=== PATIENT | male | born 1970 | race American Indian/Alaskan Native ===

== ENCOUNTER 2016-10-10 15:23 | Inpatient (IN) | payer OTHER ==
[2016-10-10] MEDS ORDERED: HALDOL IM ONE (16:17)
[2016-10-10] MEDS ORDERED: ATIVAN IM ONE (16:18)
--- NOTE | 2016-10-10 16:26 | Emergency Department Report ---
ED Chest Pain HPI - General Chief Complaint: Chest Pain Stated Complaint: CHEST PAIN Time Seen by Provider: 10/10/16 15:53 Source: EMS Mode of arrival: Stretcher Limitations: Altered Mental Status - History of Present Illness Initial Comments: This is a 46-year-old Afro-Cypriot male who presents to the emergency department via PD with complaint of chest pain that started at the patient was going to intake at [facility]. Since that time the patient has been holding his chest and has been uncooperative. The patient appears to understand was being said to him but he refuses to answer questions and refuses any type of blood draw or IV insertion. Because of the patient's uncooperative nature, he is a poor historian about any past medical history or his history of present events. - Related Data Allergies Allergy/AdvReac Type Severity Reaction Status Date / Time No Known Allergies Allergy Unverified 10/10/16 15:44 Heart Score - HEART Score History: Moderately suspicious EKG: Non-specific Age: 45-65 Risk factors: 1-2 risk factors Troponin: < normal limit HEART Score: 4 - Critical Actions Critical Actions: 4-6 pts:12-16.6% risk of adverse cardiac event. Should be admitted ED Review of Systems ROS: Stated complaint: CHEST PAIN Other details as noted in HPI Comment: Unobtainable due to pts medical conditions ED Past Medical Hx - Past Medical History Additional medical history: DOLORES - Surgical History Additional Surgical History: DOLORES - Social History Smoking Status: Unknown if ever smoked ED Physical Exam - General Limitations: Altered Mental Status - Other Other exam information: GENERAL: The patient is well-developed well-nourished. HEENT: Normocephalic. Atraumatic. Extraocular motions are intact. Patient has moist mucous membranes. Pupils equal reactive to light bilaterally. The patient is doing some abnormal movement of the tongue within his mouth going to different sides of the mouth and then sticking outside of his mouth and different repetitions. However he is also seen resting quietly with his tongue at rest as well. NECK: Supple. Trachea is midline. CHEST/LUNGS: Clear to auscultation. There is no respiratory distress noted. HEART/CARDIOVASCULAR: Regular. There is no tachycardia. There is no gallop rub or murmur. ABDOMEN: Abdomen is soft, nontender. Patient has normal bowel sounds. There is no abdominal distention. SKIN: Skin is warm and the patient is slightly diaphoretic. NEURO: Patient is awake and alert. The patient was heard talking but is not forthcoming. Withdraws from painful stimuli. MUSCULOSKELETAL: There is no tenderness or deformity. There is no limitation range of motion. There is no evidence of acute injury. ED Course Vital Signs 10/10/16 10/10/16 15:41 17:21 Temperature 98.5 F Pulse Rate 74 Respiratory 16 Rate Blood Pressure 155/83 O2 Sat by Pulse 94 Oximetry MUKESH score - Mukesh Score Age > 65: (0) No Aspirin use within the Past 7 Days: (0) No 3 or more CAD Risk Factors: (0) No 2 or more Angina events in past 24 hrs: (1) Yes Known CAD with more than 50% Stenosis: (0) No Elevated Cardiac Markers: (0) No ST Deviation Greater than 0.5mm: (1) Yes MUKESH Score: 2 ED Medical Decision Making - Lab Data Result diagrams: 10/10/16 16:57 10/10/16 16:57 - EKG Data -: EKG Interpreted by Me EKG shows normal: sinus rhythm, axis (left axis deviation), intervals, QRS complexes (Q waves to the septal leads), ST-T waves (nonspecific ST changes, T- wave inversions to the anterior and lateral leads) Rate: normal - EKG Data When compared to previous EKG there are: previous EKG unavailable Interpretation: other (sinus rhythm, left axis deviation, nonspecific CT changes , T-wave inversions in lateral leads, Q waves in the septal leads) - Radiology Data Radiology results: report reviewed, image reviewed interpreted by me: Chest x-ray did not show any acute process. Heart is normal shape and size. No effusions. No pneumothorax. No signs of pneumonia seen. CT of the head does not show any acute bleed, shift, mass or any acute process. 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 - Medical Decision Making 46-year-old male presents to the emergency Department via PD from [facility] intake with complaint of acute chest pain. While the police are at the hospital, the patient is rolling around clutching his chest. Once the police left, the patient was seen much more calm and resting more comfortably. However the patient does appear slightly diaphoretic and when approached for examination he continues to show signs of complaints of chest pain. The patient allowed us to do a EKG which appeared slightly abnormal with some T-wave inversions and nonspecific ST-T changes throughout the anterior and lateral leads. He also allowed us to do a chest x-ray which did not show any acute process. However the patient would not allow IV access by EMS, a blood draw in the emergency department. I spent time sitting down with the patient trying to reason with him that he appears diaphoretic with chest discomfort and a abnormal EKG and needs lab work to try and diagnose his issue and most likely IV access for any further treatment. The patient is refusing this and has become combative. I gave the patient a chance to prove to me that he is awake, alert and oriented and if he was able to do so that he would be allowed to refuse labs and/or treatment and we could discuss AMA disposition. However the patient either was unable to verbalize this to me or refused to do so. It is difficult to assess as the patient appears to answer some questions if it does not involve needles or blood draw but becomes completely nonverbal and combative when we are trying to get lab tests. Since the patient was unable to display that he was awake, alert, cognizant and appropriate, and since the patient became combative when we attempted to diagnose and/or treat him, the patient received some Haldol and Ativan for sedation. While the patient has been resting comfortably, we were able to do a blood draw, get a CT of the head without contrast. So far the blood work does not show any etiology of the patient's discomfort and the first troponin has been negative. There is no signs of significant leukocytosis. No left to light abnormalities, renal insufficiency or glucose abnormalities. Chest x-ray did not show any acute process. CT of the head shows possible previous left frontal lobe infarct but no acute bleed, shift, mass, ischemia. Patient has been made a 1013 secondary to his uncooperative and combative nature but will be made a medical admission. He has been accepted for admission by the hospitalist, Dr Patton. - Differential Diagnosis TN, CHF, CVA, Psychosis, Malingering Critical Care Time: No Critical care attestation.: If time is entered above; I have spent that time in minutes in the direct care of this critically ill patient, excluding procedure time. ED Disposition Clinical Impression: Combative behavior Chest pain Qualifiers: Chest pain type: unspecified Qualified Code(s): R07.9 - Chest pain, unspecified Hypertension Qualifiers: Hypertension type: essential hypertension Qualified Code(s): I10 - Essential ( primary) hypertension Disposition: 09 OP ADMIT IP TO THIS HOSP Is pt being admited?: Yes Condition: Stable Instructions: Chest Pain (ED), Hypertension (ED) Time of Disposition: 19:35
--- NOTE | 2016-10-10 17:12 | XRay Report ---
FINAL REPORT PROCEDURE: Chest. TECHNIQUE: Portable AP view. HISTORY: Chest pain. COMPARISON: No prior studies are available for comparison. FINDINGS: The radiograph is slightly underpenetrated. The heart size is borderline. There is mild tortuosity of the thoracic aorta. The lungs are grossly clear. There are no pleural effusions. The soft tissues and regional skeleton are unremarkable. IMPRESSION: No evidence of acute disease.
[2016-10-10 17:32] LABS: Basophils % (Auto) 0.7 % (0.0-1.8); Eosinophils % (Auto) 1.7 % (0.0-4.3); Hematocrit 43.8 % (35.5-45.6); Hemoglobin 14.8 gm/dl (11.8-15.2); Mean Corpuscular HGB Conc 34 % (32-34); Mean Corpuscular Hemoglobin 32 pg (28-32); Mean Corpuscular Volume 94 fl (84-94); Platelet Count 154 K/mm3 (140-440); Red Blood Count 4.66 M/mm3 (3.65-5.03); White Blood Count 7.2 K/mm3 (4.5-11.0)
[2016-10-10 17:33] LABS: Alanine Aminotransferase 28 units/L (7-56); Albumin 3.9 g/dL (3.9-5); Albumin/Globulin Ratio 1.1 %; Alkaline Phosphatase 65 units/L (35-129); Anion Gap 19 mmol/L; Blood Urea Nitrogen 14 mg/dL (9-20); Calcium 8.9 mg/dL (8.4-10.2); Carbon Dioxide 25 mmol/L (22-30); Chloride 103.6 mmol/L (98-107); Glucose 92 mg/dL (75-100); Potassium 4.1 mmol/L (3.6-5.0); Sodium 143 mmol/L (137-145); Total Protein 7.6 g/dL (6.3-8.2)
--- NOTE | 2016-10-10 18:50 | Cat Scan Report ---
FINAL REPORT PROCEDURE: CT head without contrast. TECHNIQUE: Computerized tomography of the head was performed without contrast material. HISTORY: Altered mental status. COMPARISON: No prior studies are available for comparison. FINDINGS: The ventricles are normal in size. There is a small focal area of decreased attenuation within the deep white matter of the left frontal lobe. This shows no mass-effect. It likely represents an old white matter infarct. There are no mass lesions. There is no intracranial hemorrhage. There are no definite signs of acute infarction. The calvarium appears intact. The mastoid air cells and paranasal sinuses are clear. IMPRESSION: Probable old white matter infarct in the left frontal lobe. No definite signs of acute disease.
[2016-10-10] MEDS ORDERED: ZOFRAN IV PRN (19:31)
[2016-10-10] MEDS ORDERED: TYLENOL PO PRN (19:31)
[2016-10-10] MEDS ORDERED: NITROSTAT SL PRN (19:31)
[2016-10-10] MEDS ORDERED: DULCOLAX PR PRN (19:31)
[2016-10-10] MEDS ORDERED: MILK OF MAGNESIA PO PRN (19:31)
[2016-10-10] MEDS ORDERED: ASPIRIN PR ONE (19:35)
--- NOTE | 2016-10-10 19:44 | History and Physical Report ---
History of Present Illness Date of examination: 10/10/16 Chief complaint: Chest pain History of present illness: 46-year-old man whose history is unobtainable. Therefore history was taken from the chart and from the ER physician and ER staff. Apparently this man was just arrested and he was at the police station at intake when he suddenly started clutching his chest complaining of chest pain. Upon arriving to the ER he actually became quite agitated confused and combative and therefore he was given Haldol and Ativan after which he's been sedated. no further history could be taken Past History Past Medical History: other (unknown) Past Surgical History: Other (unknown) Social history: other (unknown) Family history: other (unknown) Medications and Allergies Allergies Allergy/AdvReac Type Severity Reaction Status Date / Time No Known Allergies Allergy Unverified 10/10/16 15:44 Active Meds: Active Medications Acetaminophen (Tylenol) 650 mg PO Q4H PRN PRN Reason: Pain MILD(1-3)/Fever >100.5/ORDOÑEZ Aspirin (Ecotrin) 325 mg PO QDAY INOCENCIO Bisacodyl (Dulcolax) 10 mg IN QDAY PRN PRN Reason: Constipation unrelieved by MOM Enoxaparin Sodium (Lovenox) 40 mg SUB-Q QDAY INOCENCIO Sodium Chloride (Nacl 0.9% 1000 Ml) 1,000 mls @ 42 mls/hr IV DIRECT INOCENCIO Magnesium Hydroxide (Milk Of Magnesia) 30 ml PO Q4H PRN PRN Reason: Constipation Nitroglycerin (Nitrostat) 0.4 mg SL Q5M PRN PRN Reason: Chest Pain Ondansetron HCl (Zofran) 4 mg IV Q8H PRN PRN Reason: N/V unrelieved by Reglan Review of Systems ROS unobtainable: due to mental status Exam - Constitutional Vitals: Temp Pulse Resp BP Pulse Ox 98.5 F 74 16 155/83 94 10/10/16 15:41 10/10/16 15:41 10/10/16 17:21 10/10/16 15:41 10/10/16 15:41 General appearance: Present: no acute distress, well-nourished - EENT Eyes: Present: PERRL ENT: hearing intact, clear oral mucosa - Neck Neck: Present: supple, normal ROM - Respiratory Respiratory effort: normal Respiratory: bilateral: CTA - Cardiovascular Heart Sounds: Present: S1 & S2. Absent: rub, click - Extremities Extremities: pulses symmetrical, No edema Peripheral Pulses: within normal limits - Abdominal General gastrointestinal: Present: soft, non-tender, non-distended, normal bowel sounds Male genitourinary: Present: deferred - Integumentary Integumentary: Present: clear, warm, dry - Neurologic Neurologic: other (sedated, unable to perform neuro exam) Results - Labs CBC & Chem 7: 10/10/16 16:57 10/10/16 16:57 Labs: Laboratory Last Values WBC 7.2 K/mm3 (4.5-11.0) 10/10/16 16:57 RBC 4.66 M/mm3 (3.65-5.03) 10/10/16 16:57 Hgb 14.8 gm/dl (11.8-15.2) 10/10/16 16:57 Hct 43.8 % (35.5-45.6) 10/10/16 16:57 MCV 94 fl (84-94) 10/10/16 16:57 MCH 32 pg (28-32) 10/10/16 16:57 MCHC 34 % (32-34) 10/10/16 16:57 RDW 15.0 % (13.2-15.2) 10/10/16 16:57 Plt Count 154 K/mm3 (140-440) 10/10/16 16:57 Lymph % (Auto) 23.5 % (13.4-35.0) 10/10/16 16:57 [place] % (Auto) 11.9 % (0.0-7.3) H 10/10/16 16:57 Eos % (Auto) 1.7 % (0.0-4.3) 10/10/16 16:57 Baso % (Auto) 0.7 % (0.0-1.8) 10/10/16 16:57 Lymph # 1.7 K/mm3 (1.2-5.4) 10/10/16 16:57 [place] # 0.9 K/mm3 (0.0-0.8) H 10/10/16 16:57 Eos # 0.1 K/mm3 (0.0-0.4) 10/10/16 16:57 Baso # 0.1 K/mm3 (0.0-0.1) 10/10/16 16:57 Seg Neutrophils % 62.2 % (40.0-70.0) 10/10/16 16:57 Seg Neutrophils # 4.5 K/mm3 (1.8-7.7) 10/10/16 16:57 Sodium 143 mmol/L (137-145) 10/10/16 16:57 Potassium 4.1 mmol/L (3.6-5.0) 10/10/16 16:57 Chloride 103.6 mmol/L (98-107) 10/10/16 16:57 Carbon Dioxide 25 mmol/L (22-30) 10/10/16 16:57 Anion Gap 19 mmol/L 10/10/16 16:57 BUN 14 mg/dL (9-20) 10/10/16 16:57 Creatinine 1.4 mg/dL (0.8-1.5) 10/10/16 16:57 Estimated GFR > 60 ml/min 10/10/16 16:57 BUN/Creatinine Ratio 10.00 % 10/10/16 16:57 Glucose 92 mg/dL (75-100) 10/10/16 16:57 Calcium 8.9 mg/dL (8.4-10.2) 10/10/16 16:57 Total Bilirubin 0.40 mg/dL (0.1-1.2) 10/10/16 16:57 AST 31 units/L (5-40) 10/10/16 16:57 ALT 28 units/L (7-56) 10/10/16 16:57 Alkaline Phosphatase 65 units/L (35-129) 10/10/16 16:57 Troponin T < 0.010 ng/mL (0.00-0.029) 10/10/16 18:14 Total Protein 7.6 g/dL (6.3-8.2) 10/10/16 16:57 Albumin 3.9 g/dL (3.9-5) 10/10/16 16:57 Albumin/Globulin Ratio 1.1 % 10/10/16 16:57 Plasma/Serum Alcohol < 0.01 gm% (0-0.07) 10/10/16 18:14 - Imaging and Cardiology EKG: image reviewed (no acute ST changes) Chest x-ray: image reviewed (no acute path) Assessment and Plan Assessment and plan: 46-year-old man with unknown past medical history who was brought in after he complained of chest pain, he had just been arrested and I was at intake [facility] the [facility] when he clutched his chest complaining of chest pain. Unfortunately patient became altered and combative in the ER and had to be sedated. Chest pain First set of troponins negative EKG and chest x-ray are unremarkable, will follow serial troponins, obtain stress test in the morning he received aspirin in the ER, will continue it Encephalopathy, toxic versus metabolic Obtain UDS, continue 1013 It is possible that he may be malingering, we'll reassess his neurological status frequently DVT prophylaxis Lovenox VTE prophylaxis?: Chemical
[2016-10-10] MEDS ORDERED: NACL 0.9% 1000 ML 1,000 ML IV SCH (20:00)
[2016-10-10] MEDS ORDERED: APRESOLINE IV PRN (21:08)
[2016-10-10] MEDS ORDERED: APRESOLINE IV ONE (21:08)
[2016-10-10 22:47] LABS: Urine Drugs of Abuse Note Disclamer
[2016-10-10 23:15] LABS: Bilirubin,Urine NEG (Negative); Blood,Urine NEG (Negative); Ketones,Urine NEG (Negative); Leukocyte Esterase,Urine NEG (Negative); Nitrite,Urine NEG (Negative)
[2016-10-11] MEDS ORDERED: LEXISCAN IV ONE ×2 (08:38→08:44)
--- NOTE | 2016-10-11 10:39 | Progress Note ---
Assessment and Plan Assessment and plan: Chest pain Thus far roponins negative, EKG and chest x-ray are unremarkable. Obtain stress test this morning. Encephalopathy, toxic versus metabolic UDS positive for cocaine, continue 1013 for now. Await psychiatric evaluation after medically clear with chest pain. It is possible that he may be malingering, we'll reassess his neurological status frequently DVT prophylaxis Lovenox History Interval history: No new issues overnight. Patient seen in stress lab Hospitalist Physical - Constitutional Vitals: Temp Pulse Resp BP Pulse Ox 98.3 F 56 L 18 161/92 99 10/11/16 07:50 10/11/16 07:50 10/11/16 07:50 10/11/16 07:50 10/11/16 04:20 General appearance: Present: no acute distress, well-nourished - EENT Eyes: Present: PERRL, EOM intact ENT: hearing intact, clear oral mucosa, dentition normal - Neck Neck: Present: supple, normal ROM - Respiratory Respiratory effort: normal Respiratory: bilateral: CTA - Cardiovascular Rhythm: regular Heart Sounds: Present: S1 & S2. Absent: gallop, rub - Extremities Extremities: no ischemia, No edema, Full ROM - Abdominal General gastrointestinal: soft, non-tender, non-distended, normal bowel sounds - Integumentary Integumentary: Present: clear, warm, dry - Neurologic Neurologic: CNII-XII intact, moves all extremities Results - Labs CBC & Chem 7: 10/10/16 16:57 10/10/16 16:57 Labs: Laboratory Last Values WBC 7.2 K/mm3 (4.5-11.0) 10/10/16 16:57 RBC 4.66 M/mm3 (3.65-5.03) 10/10/16 16:57 Hgb 14.8 gm/dl (11.8-15.2) 10/10/16 16:57 Hct 43.8 % (35.5-45.6) 10/10/16 16:57 MCV 94 fl (84-94) 10/10/16 16:57 MCH 32 pg (28-32) 10/10/16 16:57 MCHC 34 % (32-34) 10/10/16 16:57 RDW 15.0 % (13.2-15.2) 10/10/16 16:57 Plt Count 154 K/mm3 (140-440) 10/10/16 16:57 Lymph % (Auto) 23.5 % (13.4-35.0) 10/10/16 16:57 [place] % (Auto) 11.9 % (0.0-7.3) H 10/10/16 16:57 Eos % (Auto) 1.7 % (0.0-4.3) 10/10/16 16:57 Baso % (Auto) 0.7 % (0.0-1.8) 10/10/16 16:57 Lymph # 1.7 K/mm3 (1.2-5.4) 10/10/16 16:57 [place] # 0.9 K/mm3 (0.0-0.8) H 10/10/16 16:57 Eos # 0.1 K/mm3 (0.0-0.4) 10/10/16 16:57 Baso # 0.1 K/mm3 (0.0-0.1) 10/10/16 16:57 Seg Neutrophils % 62.2 % (40.0-70.0) 10/10/16 16:57 Seg Neutrophils # 4.5 K/mm3 (1.8-7.7) 10/10/16 16:57 Sodium 143 mmol/L (137-145) 10/10/16 16:57 Potassium 4.1 mmol/L (3.6-5.0) 10/10/16 16:57 Chloride 103.6 mmol/L (98-107) 10/10/16 16:57 Carbon Dioxide 25 mmol/L (22-30) 10/10/16 16:57 Anion Gap 19 mmol/L 10/10/16 16:57 BUN 14 mg/dL (9-20) 10/10/16 16:57 Creatinine 1.4 mg/dL (0.8-1.5) 10/10/16 16:57 Estimated GFR > 60 ml/min 10/10/16 16:57 BUN/Creatinine Ratio 10.00 % 10/10/16 16:57 Glucose 92 mg/dL (75-100) 10/10/16 16:57 Calcium 8.9 mg/dL (8.4-10.2) 10/10/16 16:57 Total Bilirubin 0.40 mg/dL (0.1-1.2) 10/10/16 16:57 AST 31 units/L (5-40) 10/10/16 16:57 ALT 28 units/L (7-56) 10/10/16 16:57 Alkaline Phosphatase 65 units/L (35-129) 10/10/16 16:57 Troponin T < 0.010 ng/mL (0.00-0.029) 10/10/16 21:23 Total Protein 7.6 g/dL (6.3-8.2) 10/10/16 16:57 Albumin 3.9 g/dL (3.9-5) 10/10/16 16:57 Albumin/Globulin Ratio 1.1 % 10/10/16 16:57 Urine Color Yellow (Yellow) 10/10/16 22:40 Urine Turbidity Clear (Clear) 10/10/16 22:40 Urine pH 6.0 (5.0-7.0) 10/10/16 22:40 Ur Specific [employer] 1.021 (1.003-1.030) 10/10/16 22:40 Urine Protein 30 mg/dl mg/dL (Negative) 10/10/16 22:40 Urine Glucose (UA) Neg mg/dL (Negative) 10/10/16 22:40 Urine Ketones Neg mg/dL (Negative) 10/10/16 22:40 Urine Blood Neg (Negative) 10/10/16 22:40 Urine Nitrite Neg (Negative) 10/10/16 22:40 Urine Bilirubin Neg (Negative) 10/10/16 22:40 Urine Urobilinogen 4.0 mg/dL (<2.0) 10/10/16 22:40 Ur Leukocyte Esterase Neg (Negative) 10/10/16 22:40 Urine WBC (Auto) 2.0 /HPF (0.0-6.0) 10/10/16 22:40 Urine RBC (Auto) 4.0 /HPF (0.0-6.0) 10/10/16 22:40 U Epithel Cells (Auto) 2.0 /HPF (0-13.0) 10/10/16 22:40 Hyaline Casts 1-2 /LPF 10/10/16 22:40 Urine Opiates Screen Presumptive negative 10/10/16 22:40 Urine Methadone Screen Presumptive negative 10/10/16 22:40 Ur Barbiturates Screen Presumptive negative 10/10/16 22:40 Ur Phencyclidine Scrn Presumptive negative 10/10/16 22:40 Ur Amphetamines Screen Presumptive negative 10/10/16 22:40 U Benzodiazepines Scrn Presumptive negative 10/10/16 22:40 Urine Cocaine Screen Presumptive positive 10/10/16 22:40 U Marijuana (THC) Screen Presumptive negative 10/10/16 22:40 Drugs of Abuse Note Disclamer 10/10/16 22:40 Plasma/Serum Alcohol < 0.01 gm% (0-0.07) 10/10/16 18:14
[2016-10-11] MEDS: LOVENOX SUB-Q SCH (14:11)
[2016-10-11] MEDS: ECOTRIN PO SCH (14:11)
--- NOTE | 2016-10-12 08:19 | Admit Criteria Form ---
Admission Criteria Documentation: CARDIOLOGY GRG Clinical Indications for Admission to Inpatient Care ( Place 'X' for any and all applicable criteria): Hospital admission is needed for appropriate care of the patient because of ANY ONE of the following (1): [ ] I. Hemodynamic instability as indicated by ALL of the following (1)(2)(3) (4)(5) [ ]a) Vital signs or other findings not as expected for chronic patient condition or baseline [ ]b) Instability indicated by ANY ONE of the following: [ ]i) Hypotension [ ]ii) Symptomatic Tachycardia unresponsive to treatment ( e.g., analgesia, fluids, sedation as indicated) [ ]iii) Inadequate perfusion indicated by ANY ONE of the following: [ ] 1) Lactic acidosis (> 2 mmol/L) [ ] 2) New abnormal capillary refill (> 3 seconds) [ ] 3) Reduced urine output [ ] 4) New altered mental status [ ]iv) Orthostatic vital sign changes unresponsive to treatment (e.g., fluids) [ ]v) IV inotropic or vasopressor medication required to maintain adequate blood pressure or perfusion [ ] II. Severe heart failure as indicated by ANY ONE of the following(17)(18) [ ]a) Respiratory distress [ ]b) Hypotension [ ]c) Anasarca (refractory to outpatient therapy) [ ]d) Cardiac arrhythmias of immediate concern [ ]e) Myocardial ischemia [ ] III. Cardiac arrhythmias or findings of immediate concern indicated by ANY ONE of the following (19)(20): [ ] a) Heart rhythms that are inherently dangerous or unstable indicated by ANY ONE of the following (21)(22)(23): [ ] i) Resuscitated ventricular fibrillation or cardiac arrest [ ] ii) Ventricular escape rhythm [ ] iii) Sustained ventricular tachycardia (30 seconds or more of ventricular rhythm at greater than 100 beats per minute) [ ] iv) Nonsustained ventricular tachycardia and ANY ONE of the following: [ ] 1) Suspected cardiac ischemia as cause or consequence of ventricular tachycardia [ ] 2) In setting of acute myocarditis [ ] b) Unstable cardiac conduction defects indicated by ANY ONE of the following(23)(24)(25) [ ] i) Type II second-degree atrioventricular block [ ]ii) Third-degree atrioventricular block [ ]iii) New-onset left bundle branch block with suspected myocardial ischemia [ ]c) Any heart rhythm and ANY ONE of the following (21)(22)(26)(27) (28) [ ] i) Continuous long-term ECG monitoring needed (e.g., initiation of drug requiring monitoring for more than 24 hours) [ ] ii) Patient has automatic implanted cardioverter defibrillator that is repeatedly firing, malfunctioning, or in need of immediate adjustment of settings beyond the scope of ambulatory or observation care [ ]d) Heart rhythms of concern due to ANY ONE of the following: [ ] i) Hypotension [ ] ii) Respiratory distress [ ] iii) Association with other significant symptoms (e.g., bradycardia with syncope or ongoing dizziness, supraventricular tachycardia with chest pain (14)(15)(17) [ ] IV. Monitoring for cardiac contusion beyond the scope of observation care needed [A](30)(31)(32) [ ] V. Surgical or device complication (e.g., valve replacement complication , pacemaker dysfunction) (35)(41)(44)(45)(46) [ ] . Inpatient palliative care needed. [B](49) Also use Inpatient Palliative Care Criteria [ ] VII. Nonbacterial thrombotic (marantic) endocarditis (36)(43)(47)(48) [X] VIII. Cardiology condition, symptom, or finding for which emergency and observation care has failed or are not considered appropriate. [ ] IX. Acute valvular disease requiring inpatient as indicated by ANY ONE of the following (41) [ ]a) Acute valvular regurgitation (42) [ ]b) Noninfectious valvulitis (43) [ ]c) Obstructive valve thrombosis [ ]d) Paravalvular leak [ ]e) Other significant valvular disorder remaining after emergency or observation level of care (as appropriate) [ ]X. Pericardial disease requiring inpatient treatment as indicated by ANY ONE of the following (33)(34)(35)(36)(37) [ ]a) Suspected tamponade (38)(39)(40) [ ]b) Hemopericardium [ ]c) Other significant pericardial disorder remaining after emergency or observation level of care (as appropriate) [ ] XI. Cardiac ischemia beyond scope of emergency and observation care. [ ] XII. Hypertension requiring inpatient treatment as indicated by ANY ONE of the following (6)(7)(8) [ ]a) SBP greater than 220 mm Hg or DBP greater than 120 mmHg despite treatment [ ]b) SBP greater than 140 mm Hg or DBP greater than 100 mm Hg with evidence of acute end organ damage as indicated by ANY ONE of the following [ ] i) Altered mental status [ ] ii) Acute renal failure as indicated by new onset of ANY ONE of the following (9)(10)(11)(12)(13) [ ]1) 3-fold rise in serum creatinine from baseline [ ]2) Serum creatinine greater than 4 mg/dL ( 354 micromoles/L) with acute rise greater than 0.5 mg/dL (44.2 micromoles/L) [ ]3) Reduction of more than 75% in estimated glomerular filtration rate from baseline [ ]4) Estimated glomerular filtration rate less than 35 mL/min/1.73m2 (0.59 mL/sec/1.73m2) in child up to 18 years of age [ ]5) Cessation of urine output indicated by ALL of the following [ ]A. Adequate volume status [ ]B. Inadequate urine output as indicated by ANY ONE of the following [ ]a. Urine output less than 0.3 mL/kg/hr for 24 hours [ ]b. Anuria (urine output less than 0.1 mL/kg/hr) for 12 hours [ ] iii) Aortic dissection [ ] iv) Myocardial Ischemia [ ] v) Left ventricular heart failure [ ]vi) Retinal Hemorrhage [ ]vii) Other significant finding [ ]c) Hypertension in child requiring inpatient treatment as indicated by ALL of the following(14)(15)(16) [ ] i) Outpatient treatment not effective, not available, or not appropriate [ ]ii) SBP or DBP greater than 95th percentile for age [ ]iii) Evidence of acute end organ damage as indicated by ANY ONE of the following [ ]1) Altered mental status [ ]2) Acute renal failure as indicated by new onset of ANY ONE of the following(9)(10)(11)(12)(13) [ ]A. 3-fold rise in serum creatinine from baseline [ ]B. Serum creatinine greater than 4 mg/dL (354 micromoles/L) with acute rise greater than 0.5 mg/dL (44.2 micromoles/L) [ ]C. Reduction of more than 75% in estimated glomerular filtration rate from baseline [ ]D. Estimated glomerular filtration rate less than 35 mL/min/1.73m2 (0.59 mL/sec/1.73m2) in child up to 18 years of age [ ]E. Cessation of urine output indicated by ALL of the following [ ]a. Adequate volume status [ ]b. Inadequate urine output as indicated by ANY ONE of the following [ ]i) Urine output less than 0.3 mL/kg/hr for 24 hours [ ]ii) Anuria ( urine output less than 0.1 mL/kg/hr) for 12 hours [ ]3) Severe headache [ ]4) Visual disturbance [ ]5) Retinal hemorrhage [ ]6) Other significant finding [ ]XIII. Complications of transplanted heart indicated by ANY ONE of the following(61): [ ]a) Acute graft rejection requiring inpatient management (eg, intravenous immunosuppression)(62)(63) [ ]b) Acute graft heart failure indicated by ANY ONE of the following(64): [ ]i) Hemodynamic instability [ ]ii) Cardiac arrhythmias of immediate concern [ ]iii) Pulmonary edema that is very severe (eg, mechanical ventilation needed, imminent or likely, need for 100% oxygen to keep oxygen saturation above 90%) [ ]iv) Pulmonary edema that is persistent as indicated by ALL of the following: [ ]1) New need for oxygen therapy to keep oxygen saturation above 90% (or increased FiO2 need from baseline) [ ]2) Has not improved sufficiently with emergency department or observation care IV diuretics or other heart failure treatments[E] [ ]v) Altered mental status that is severe or persistent [ ]vi) Increased creatinine (new on laboratory test) with reduction of more than 50% in estimated glomerular filtration rate from baseline [ ]vii) Progressively (ongoing) rising creatinine (known from past laboratory test) with reduction of more than 25% in estimated glomerular filtration rate from baseline [ ]viii) Acute renal failure [ ]ix) Acute peripheral ischemia (eg, examination shows pulseless, cool, mottled, or cyanotic extremity) [ ]x) Pulmonary artery catheter monitoring needed [ ]xi) Other sign or symptom of heart failure requiring inpatient treatment (ie, too severe or not responsive to outpatient and observation care treatment) [ ]c) Infection requiring inpatient management (eg, Hemodynamic instability, need for intravenous antimicrobial treatment)(66)(67)(68)(69)(70) [ ]d) Cardiac allograft vasculopathy requiring inpatient management ( eg evidence of cardiac ischemia)(71) [ ]e) Other complication of transplanted heart (eg, stroke, severe pulmonary hypertension, severe valvular dysfunction) requiring inpatient management(72) The original [facility] [place], [place] [employer] content created by [employer] has been revised. The portions of the content which have been revised are identified through the use of italic text or in bold, and [facility] has neither reviewed nor approved the modified material. All other unmodified content is copyright [facility] [place], [place] [employer]. Please see references footnoted in the original [facility] [place] [place] [employer] edition 2016 Admission Criteria Met: Yes
[2016-10-12] MEDS: LOVENOX SUB-Q SCH (09:56)
[2016-10-12] MEDS: ECOTRIN PO SCH (09:57)
[2016-10-12 10:00] VITALS: BP 172/87
--- NOTE | 2016-10-12 15:46 | Progress Note ---
Assessment and Plan Assessment and plan: Patient is a 46-year-old man who presented with left-sided chest pain. UDS was positive for cocaine. -Chest pain, atypical, due to cocaine -HTN, accelerated urgency: treat with antihypertensives. -UDS for cocaine: counselling done. -Acute toxic medication due to cocaine, under 1013: await mental health evaluation History Interval history: Patient seen and examined. Follow up on left-sided chest pain which is still present off and on. Overnight uneventful. No sob, n/v or severe headaches. Imaging, old records, testing, labs, nursing notes reviewed. Hospitalist Physical - Physical exam Narrative exam: GEN: WDWN, NAD, AWAKE, ALERT, ORIENTATED x 3 HEENT: NCAT, PERRL, EOMI, OP CLEAR NECK: SUPPLE, NO THYROMEGALY, NO JVD, NO LAD CVS: RRR, NORMAL S1S2 LUNGS/CHEST: CTA B, NORMAL CHEST EXPANSION B, GOOD AIR ENTRY B ABD: SOFT, NTND, GBS, NO REBOUND OR GUARDING EXT/SKIN: NO SIGNIFICANT EDEMA OR RASH MSK: FROM X 4 EXTREMITIES NEURO: CN 2-12 GROSSLY INTACT, NO FOCAL DEFICITS PSY: With drawn - Constitutional Vitals: Temp Pulse Resp BP Pulse Ox 98.7 F 53 L 18 172/87 95 10/12/16 09:58 10/12/16 11:03 10/12/16 11:03 10/12/16 09:58 10/12/16 11:03 General appearance: Present: no acute distress, well-nourished Results - Labs CBC & Chem 7: 10/10/16 16:57 10/10/16 16:57 Labs: Laboratory Last Values WBC 7.2 K/mm3 (4.5-11.0) 10/10/16 16:57 RBC 4.66 M/mm3 (3.65-5.03) 10/10/16 16:57 Hgb 14.8 gm/dl (11.8-15.2) 10/10/16 16:57 Hct 43.8 % (35.5-45.6) 10/10/16 16:57 MCV 94 fl (84-94) 10/10/16 16:57 MCH 32 pg (28-32) 10/10/16 16:57 MCHC 34 % (32-34) 10/10/16 16:57 RDW 15.0 % (13.2-15.2) 10/10/16 16:57 Plt Count 154 K/mm3 (140-440) 10/10/16 16:57 Lymph % (Auto) 23.5 % (13.4-35.0) 10/10/16 16:57 [place] % (Auto) 11.9 % (0.0-7.3) H 10/10/16 16:57 Eos % (Auto) 1.7 % (0.0-4.3) 10/10/16 16:57 Baso % (Auto) 0.7 % (0.0-1.8) 10/10/16 16:57 Lymph # 1.7 K/mm3 (1.2-5.4) 10/10/16 16:57 [place] # 0.9 K/mm3 (0.0-0.8) H 10/10/16 16:57 Eos # 0.1 K/mm3 (0.0-0.4) 10/10/16 16:57 Baso # 0.1 K/mm3 (0.0-0.1) 10/10/16 16:57 Seg Neutrophils % 62.2 % (40.0-70.0) 10/10/16 16:57 Seg Neutrophils # 4.5 K/mm3 (1.8-7.7) 10/10/16 16:57 Sodium 143 mmol/L (137-145) 10/10/16 16:57 Potassium 4.1 mmol/L (3.6-5.0) 10/10/16 16:57 Chloride 103.6 mmol/L (98-107) 10/10/16 16:57 Carbon Dioxide 25 mmol/L (22-30) 10/10/16 16:57 Anion Gap 19 mmol/L 10/10/16 16:57 BUN 14 mg/dL (9-20) 10/10/16 16:57 Creatinine 1.4 mg/dL (0.8-1.5) 10/10/16 16:57 Estimated GFR > 60 ml/min 10/10/16 16:57 BUN/Creatinine Ratio 10.00 % 10/10/16 16:57 Glucose 92 mg/dL (75-100) 10/10/16 16:57 Calcium 8.9 mg/dL (8.4-10.2) 10/10/16 16:57 Total Bilirubin 0.40 mg/dL (0.1-1.2) 10/10/16 16:57 AST 31 units/L (5-40) 10/10/16 16:57 ALT 28 units/L (7-56) 10/10/16 16:57 Alkaline Phosphatase 65 units/L (35-129) 10/10/16 16:57 Troponin T < 0.010 ng/mL (0.00-0.029) 10/10/16 21:23 Total Protein 7.6 g/dL (6.3-8.2) 10/10/16 16:57 Albumin 3.9 g/dL (3.9-5) 10/10/16 16:57 Albumin/Globulin Ratio 1.1 % 10/10/16 16:57 Urine Color Yellow (Yellow) 10/10/16 22:40 Urine Turbidity Clear (Clear) 10/10/16 22:40 Urine pH 6.0 (5.0-7.0) 10/10/16 22:40 Ur Specific [place] 1.021 (1.003-1.030) 10/10/16 22:40 Urine Protein 30 mg/dl mg/dL (Negative) 10/10/16 22:40 Urine Glucose (UA) Neg mg/dL (Negative) 10/10/16 22:40 Urine Ketones Neg mg/dL (Negative) 10/10/16 22:40 Urine Blood Neg (Negative) 10/10/16 22:40 Urine Nitrite Neg (Negative) 10/10/16 22:40 Urine Bilirubin Neg (Negative) 10/10/16 22:40 Urine Urobilinogen 4.0 mg/dL (<2.0) 10/10/16 22:40 Ur Leukocyte Esterase Neg (Negative) 10/10/16 22:40 Urine WBC (Auto) 2.0 /HPF (0.0-6.0) 10/10/16 22:40 Urine RBC (Auto) 4.0 /HPF (0.0-6.0) 10/10/16 22:40 U Epithel Cells (Auto) 2.0 /HPF (0-13.0) 10/10/16 22:40 Hyaline Casts 1-2 /LPF 10/10/16 22:40 Urine Opiates Screen Presumptive negative 10/10/16 22:40 Urine Methadone Screen Presumptive negative 10/10/16 22:40 Ur Barbiturates Screen Presumptive negative 10/10/16 22:40 Ur Phencyclidine Scrn Presumptive negative 10/10/16 22:40 Ur Amphetamines Screen Presumptive negative 10/10/16 22:40 U Benzodiazepines Scrn Presumptive negative 10/10/16 22:40 Urine Cocaine Screen Presumptive positive 10/10/16 22:40 U Marijuana (THC) Screen Presumptive negative 10/10/16 22:40 Drugs of Abuse Note Disclamer 10/10/16 22:40 Plasma/Serum Alcohol < 0.01 gm% (0-0.07) 10/10/16 18:14
--- NOTE | 2016-10-12 15:54 | Discharge Summary ---
Providers - Providers Date of Admission: 10/12/16 14:22 Date of discharge: 10/12/16 Attending physician: MELLO CONTRERAS Primary care physician: THONY STUBBS MD Hospitalization Condition: Stable Hospital course: Patient is a 46-year-old man who presented with left-sided chest pain. UDS was positive for cocaine. -Chest pain, atypical, due to cocaine -HTN, accelerated urgency: treat with antihypertensives. -UDS for cocaine: counselling done. -Acute toxic medication due to cocaine, under 1013: await mental health evaluation==>verbal cleared for home Disposition: DC-01 TO HOME OR SELFCARE Time spent for discharge: 37 minutes Core Measure Documentation - Palliative Care Palliative Care/ Comfort Measures: Not Applicable - Core Measures Any of the following diagnoses?: none - VTE Discharge Requirements Deep Vein Thrombosis/Pulmonary Embolism Present on Admission: No Has pt received <5 days of overlap therapy or INR<2.0: No Anticoagulant overlap therapy prescribed at discharge: No Contraindication No Overlap Therapy order at DC: Not Indicated Exam - Physical Exam Narrative exam: GEN: WDWN, NAD, AWAKE, ALERT, ORIENTATED x 3 HEENT: NCAT, PERRL, EOMI, OP CLEAR NECK: SUPPLE, NO THYROMEGALY, NO JVD, NO LAD CVS: RRR, NORMAL S1S2 LUNGS/CHEST: CTA B, NORMAL CHEST EXPANSION B, GOOD AIR ENTRY B ABD: SOFT, NTND, GBS, NO REBOUND OR GUARDING EXT/SKIN: NO SIGNIFICANT EDEMA OR RASH MSK: FROM X 4 EXTREMITIES NEURO: CN 2-12 GROSSLY INTACT, NO FOCAL DEFICITS PSY: With drawn - Constitutional Vitals: Temp Pulse Resp BP Pulse Ox 98.7 F 53 L 18 172/87 95 10/12/16 09:58 10/12/16 11:03 10/12/16 11:03 10/12/16 09:58 10/12/16 11:03 Plan Activity: other (no strenous activites until cleared by PCP. ) Diet: low salt Follow up with: PRIMARY CAREMD [Primary Care Provider] - 3-5 Days
--- NOTE | 2016-10-12 16:12 | Consultation ---
History of Present Illness - Reason for Consult Consult date: 10/12/16 Reason for consult: Mental Health Evaluation Requesting physician: MUSA LEWIS - Chief Complaint Chief complaint: Chest pain - History of Present Psychiatric Illness This is a 46-year-old Afro-[place] male who presents to the emergency department via PD with complaint of chest pain that started at the patient was going to intake at halfway. Today patient is calm and cooperative during assessment. He stated using cocaine for the past 20 plus years. He stated that he use cocaine "typically" once a week. He stated that he was upset with the staff in the ER when he stated, "I don't like needles" and they still held him down. He stated that he felt like the staff assaulted him when they finally draw his blood (venipuncture). He stated having relationship issues with his current girlfriend and that exacerbated his need for cocaine. He stated that he plan to go to rehab once he is discharged. He denies SI/HI's, AVH's, and depression symptoms. He denies excessive alcohol consumption. He stated attending multiple rehab services in the past and was "clean" from cocaine for 5 years. Medications and Allergies Allergies Allergy/AdvReac Type Severity Reaction Status Date / Time No Known Allergies Allergy Unverified 10/10/16 15:44 Home Medications Medication Instructions Recorded Confirmed Last Taken Type No Known Home Medications [No 10/11/16 10/11/16 Unknown History Reported Home Medications] Active Meds: Active Medications Acetaminophen (Tylenol) 650 mg PO Q4H PRN PRN Reason: Pain MILD(1-3)/Fever >100.5/ORDOÑEZ Aspirin (Ecotrin) 325 mg PO QDAY [facility] Last Admin: 10/12/16 09:57 Dose: 325 mg Bisacodyl (Dulcolax) 10 mg IA QDAY PRN PRN Reason: Constipation unrelieved by MOM Enoxaparin Sodium (Lovenox) 40 mg SUB-Q QDAY [facility] Last Admin: 10/12/16 09:56 Dose: Not Given Sodium Chloride (Nacl 0.9% 1000 Ml) 1,000 mls @ 42 mls/hr IV DIRECT INOCENCIO Magnesium Hydroxide (Milk Of Magnesia) 30 ml PO Q4H PRN PRN Reason: Constipation Nitroglycerin (Nitrostat) 0.4 mg SL Q5M PRN PRN Reason: Chest Pain Ondansetron HCl (Zofran) 4 mg IV Q8H PRN PRN Reason: N/V unrelieved by Reglan Past psychiatric history - Past Medical History Past Medical History: No medical history Past Surgical History: No surgical history - past Psychiatric treatment and history psychiatric treatment history: Admits to multiple rehab services for cocaine. Denies a fam psy hx. - Social History Social history: lives with family (GED) Mental Status Exam - Vital signs Last Vital Signs Temp 98.7 F 10/12/16 09:58 Pulse 53 L 10/12/16 11:03 Resp 18 10/12/16 11:03 BP 172/87 10/12/16 09:58 Pulse Ox 95 10/12/16 11:03 - Exam Narrative exam: ROS: (-) depression MSE: Appearance: calm Behavior: regular eye contact Speech: regular rate and tone Mood: "well" Affect: congruent to mood Thought Process: linear Thought Content: denies SI/HI's and AVH's Motor Activity: ambulatory Cognition: A/Ox 3 Insight: fair Judgment: fair Results Result Diagrams: 10/10/16 16:57 10/10/16 16:57 All other labs normal. 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 Today patient is calm and cooperative during assessment. He denies SI/HI's. Patient is no threat to self or others. Positive for cocaine. DDx: R/O Depressive DO Recommendation/Plan: Rescind 1013. Patient was given outpatient rehab services in his local area. Discussed the importance to abstain from recreational drug use.
== END 2016-10-12 17:24 | disposition home or self-care (01) | DRG 304 ==
LOC: ED 15:23 → 4A 19:33 → OBSVTOIN 10-12 14:22
PROVIDERS: ADMIT Internal Medicine; ATTEND Internal Medicine
DX: I16.0 Hypertensive urgency (principal); G93.40 Encephalopathy, unspecified; R07.89 Other chest pain; F14.90 Cocaine use, unspecified, uncomplicated; Z71.51 Drug abuse counseling and surveillance of drug abuser
CPT/HCPCS: 36415; 70450; 71010; 78452; 80053; 80307; 80320; 81001; 84484; 85025; 93005; 93010; 93017; 96372; 96374; A9502; G0378; G0480; J0360; J1630; J1650; J2060; J2785